=== PATIENT | female | born 1995 | race Caucasian/White ===

== ENCOUNTER 2017-03-06 23:47 | Emergency (ER) | payer BC ==
[2017-03-06 23:52] VITALS: TEMP 98.4
[2017-03-07] MEDS ORDERED: ONDANSETRON 4 MG/2 ML VIAL ONE (00:16)
[2017-03-07] MEDS ORDERED: NS 1,000 ML IV ONE ×2 (00:18→01:05)
[2017-03-07] MEDS ORDERED: ONDANSETRON 4 MG/2 ML VIAL IVP ONE (00:18)
--- NOTE | 2017-03-07 00:49 | EDPHY ---
H & P Stated Complaint: N/V/ABD CRAMPING since this morning Time Seen by Provider: 03/07/17 00:34 HPI/ROS: HPI The patient presents with lower abdominal pain, with nausea and vomiting. Symptoms began this morning, with intermittent cramping in her lower abdomen. This was associated with a feeling of lightheadedness and nausea. She stated in bed for most of the day and then at about 4:00 p.m. began vomiting. The pain continues and last for about 30 minutes at a time. It does not radiate. She had a normal bowel movement yesterday and denies any diarrhea. She has not had a fever and denies any sick contacts. She does not have any dysuria, her last menstrual period was 2 weeks ago. She does get occasional cramping with her menstrual period, however nothing quite so severe. She had a similar episode of pain and nausea and vomiting about 5 years ago and was diagnosed with dehydration.. REVIEW OF SYSTEMS Constitutional: No fever, no chills. Eyes: No discharge. ENT: No sore throat. Cardiovascular: No chest pain, no palpitations. Respiratory: No cough, no shortness of breath. Gastrointestinal: See HPI Genitourinary: No hematuria. Musculoskeletal: No back pain. Skin: No rashes. Neurological: No headache. PMHx: Jaw operation Soc Hx: College student PHYSICAL General Appearance: Alert, no distress Eyes: Pupils equal and round no pallor or injection ENT, Mouth: Mucous membranes dry Respiratory: There are no retractions, lungs are clear to auscultation Cardiovascular: Regular rate and rhythm Gastrointestinal: Abdomen is soft with mild tenderness in the lower abdomen, no masses, bowel sounds normal Neurological: A&O, moves all extremities Skin: Warm and dry, no rashes Musculoskeletal: Neck is supple non tender Extremities: symmetrical, full range of motion Psychiatric: Patient is oriented X 3, there is no agitation Source: Patient Exam Limitations: No limitations - Personal History LMP (Females 10-55): 8-14 Days Ago Current Tetanus/Diphtheria Vaccine: Yes Tetanus Vaccine Date: <10 years - Medical/Surgical History Hx Asthma: No Hx Chronic Respiratory Disease: No Hx Diabetes: No Hx Cardiac Disease: No Hx Renal Disease: No Hx Cirrhosis: No Hx Alcoholism: No Hx HIV/AIDS: No Hx Splenectomy or Spleen Trauma: No Other PMH: jaw sx, Constitutional: Initial Vital Signs Temperature (C) 36.9 C 03/06/17 23:49 Heart Rate 114 H 03/06/17 23:49 Respiratory Rate 20 03/06/17 23:49 Blood Pressure 120/74 03/06/17 23:49 O2 Sat (%) 96 03/06/17 23:49 O2 Delivery Mode Room Air Allergies/Adverse Reactions: codeine Allergy (Verified 03/06/17 23:52) Vomiting Sulfa (Sulfonamide Antibiotics) Allergy (Verified 03/06/17 23:52) Other-Enter Comments Home Medications: Medication Instructions Recorded Ocella 3 mg-0.03 mg Tablet 03/06/17 Medical Decision Making Differential Diagnosis: 21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 On exam, she is tachycardic and appears dehydrated, she does have mild tenderness in her lower abdomen without any rebound or guarding. Differential diagnosis includes appendicitis, colitis, viral gastroenteritis, toxin mediated enterocolitis. Plan for IV fluids, basic labs, Zofran, p. o. challenge and reassess. The patient received a total of 2 L of IV fluid. She felt well after this. On reassessment, she still has very mild lower abdominal tenderness. I discussed this with her and explained that if her pain continues, moved to the right lower quadrant or becomes associated with vomiting or fever, she needs to return to the emergency department for reassessment for possible early appendicitis. She was able to tolerate fluids by mouth and will be discharged to home. - Data Points Laboratory Results: Laboratory Results 03/07/17 00:08 03/07/17 00:08 03/07/17 03/07/17 00:08 00:08 WBC 5.93 10^3/uL 10^3/uL (3.80-9.50) RBC 4.85 10^6/uL 10^6/uL (4.18-5.33) Hgb 15.1 g/dL g/dL (12.6-16.3) Hct 42.7 % % (38.0-47.0) MCV 88.0 fL fL (81.5-99.8) MCH 31.1 pg pg (27.9-34.1) MCHC 35.4 g/dL g/dL (32.4-36.7) RDW 11.9 % % (11.5-15.2) Plt Count 210 10^3/uL 10^3/uL (150-400) MPV 10.1 fL fL (8.7-11.7) Neut % (Auto) 81.3 % H % (39.3-74.2) Lymph % (Auto) 13.7 % L % (15.0-45.0) [place] % (Auto) 3.9 % L % (4.5-13.0) Eos % (Auto) 0.5 % L % (0.6-7.6) Baso % (Auto) 0.3 % % (0.3-1.7) Nucleat RBC Rel Count 0.0 % % (0.0-0.2) Absolute Neuts (auto) 4.82 10^3/uL 10^3/uL (1.70-6.50) Absolute Lymphs (auto) 0.81 10^3/uL L 10^3/uL (1.00-3.00) Absolute Monos (auto) 0.23 10^3/uL L 10^3/uL (0.30-0.80) Absolute Eos (auto) 0.03 10^3/uL 10^3/uL (0.03-0.40) Absolute Basos (auto) 0.02 10^3/uL 10^3/uL (0.02-0.10) Absolute Nucleated RBC 0.00 10^3/uL 10^3/uL (0-0.01) Immature Gran % 0.3 % % (0.0-1.1) Immature Gran # 0.02 10^3/uL 10^3/uL (0.00-0.10) Sodium 139 mEq/L mEq/L (134-144) Potassium 3.9 mEq/L mEq/L (3.5-5.2) Chloride 103 mEq/L mEq/L (97-110) Carbon Dioxide 18 mEq/l L mEq/l (22-31) Anion Gap 18 mEq/L H mEq/L (8-16) BUN 13 mg/dL mg/dL (7-23) Creatinine 0.8 mg/dL mg/dL (0.6-1.0) Estimated GFR > 60 Glucose 78 mg/dL mg/dL (70-100) Calcium 9.1 mg/dL mg/dL (8.5-10.4) Total Bilirubin 0.5 mg/dL mg/dL (0.1-1.4) AST 28 IU/L IU/L (14-46) ALT 40 IU/L IU/L (9-52) Alkaline Phosphatase 85 IU/L IU/L (38-126) Total Protein 7.0 g/dL g/dL (6.3-8.2) Albumin 4.2 g/dL g/dL (3.5-5.0) Medications Given: Discontinued Medications Sodium Chloride (Ns) 1,000 mls @ 0 mls/hr IV ONCE ONE PRN Reason: Wide Open Stop: 03/07/17 00:19 Last Admin: 03/07/17 00:21 Dose: 1,000 mls Sodium Chloride (Ns) 1,000 mls @ 0 mls/hr IV ONCE ONE PRN Reason: Wide Open Stop: 03/07/17 01:06 Last Admin: 03/07/17 01:08 Dose: 1,000 mls Ondansetron HCl (Zofran) 4 mg IVP EDNOW ONE Stop: 03/07/17 00:19 Last Admin: 03/07/17 00:21 Dose: 4 mg Ondansetron HCl (Zofran Odt 4 Mg Prepack#2) 1 btl TAKEHOME EDNOW ONE Stop: 03/07/17 02:21 Last Admin: 03/07/17 02:39 Dose: 1 btl Departure - Departure Disposition: Home, Routine, Self-Care Clinical Impression: Abdominal pain Qualifiers: Abdominal location: periumbilical Qualified Code(s): R10.33 - Periumbilical pain Nausea & vomiting Qualifiers: Vomiting type: unspecified Vomiting Intractability: non-intractable Qualified Code(s): R11.2 - Nausea with vomiting, unspecified Condition: Good Instructions: Dehydration (ED), Acute Nausea and Vomiting (ED) Additional Instructions: Please monitor your pain at home. If it becomes worse, you develop a fever, or more vomiting, you should return to the emergency department. Otherwise, please make sure to drink plenty of fluids over the course of the day. Referrals: [facility] [Clinic] - As per Instructions Stand Alone Forms: School Excuse
[2017-03-07 00:56] LABS: ALANINE AMINOTRANSFERASE 40 IU/L (9-52); ALBUMIN 4.2 g/dL (3.5-5.0); ALKALINE PHOSPHATASE 85 IU/L (38-126); ANION GAP 18 mEq/L (8-16); ASPARTATE AMINOTRANSFERASE 28 IU/L (14-46); BILIRUBIN,TOTAL 0.5 mg/dL (0.1-1.4); CALCIUM 9.1 mg/dL (8.5-10.4); CARBON DIOXIDE 18 mEq/l (22-31); CHLORIDE 103 mEq/L (97-110); CREATININE 0.8 mg/dL (0.6-1.0); GLOMERULAR FILTRATION RATE > 60; GLUCOSE 78 mg/dL (70-100); POTASSIUM 3.9 mEq/L (3.5-5.2); SODIUM 139 mEq/L (134-144)
[2017-03-07 00:58] LABS: % IMMATURE GRANULYOCYTES 0.3 % (0.0-1.1); ABSOLUTE IMMATURE GRANULOCYTES 0.02 10^3/uL (0.00-0.10); ADD DIFF? NO; ADD MORPH? NO; ADD SCAN? NO; ATYPICAL LYMPHOCYTE FLAG 20 (0-99); FRAGMENT RBC FLAG 0 (0-99); HEMATOCRIT 42.7 % (38.0-47.0); HEMOGLOBIN 15.1 g/dL (12.6-16.3); LEFT SHIFT FLG 0 (0-99); LIPEMIA HEMOLYSIS FLAG 90 (0-99); MEAN CELL HEMOGLOBIN 31.1 pg (27.9-34.1); MEAN CELL HEMOGLOBIN CONCENTR. 35.4 g/dL (32.4-36.7); MEAN PLATELET VOLUME 10.1 fL (8.7-11.7); PLATELET CLUMPS FLAG 10 (0-99); PLATELET COUNT 210 10^3/uL (150-400); RED BLOOD CELL COUNT 4.85 10^6/uL (4.18-5.33); RED CELL DISTRIBUTION WIDTH 11.9 % (11.5-15.2)
[2017-03-07] MEDS ORDERED: ONDANSETRON 4MG PREPACK#2 BTL TAKEHOME ONE (02:20)
[2017-03-07 02:44] VITALS: RESP 16
[2017-03-07 02:45] VITALS: BP 101/73; PULSE 86; O2SAT 96
== END 2017-03-07 02:45 | disposition home or self-care (01) ==
DX: R11.2 Nausea with vomiting, unspecified (principal); R10.33 Periumbilical pain
CPT/HCPCS: 96374; J2405